=== PATIENT | male | born 1955 | race Caucasian/White ===

== ENCOUNTER 2018-05-20 09:02 | Outpatient (REF) | payer MEDICARE, SELFPAY ==
[2018-05-20 15:35] LABS: ALT 23 U/L (12-78); AST 17 U/L (15-37); Albumin 3.5 g/dL (3.4-5.0); Alkaline Phosphatase 112 U/L (46-116); Anion Gap 8.8 mmol/L (3-11); BUN 20 mg/dL (7-18); Bilirubin, Total 0.4 mg/dL (0.2-1.0); CO2 27.2 mmol/L (21.0-32.0); Calcium 8.2 mg/dL (8.5-10.1); Chloride 106 mmol/L (98-107); Glucose 187 mg/dL (70-100); Potassium 4.5 mmol/L (3.5-5.1); Sodium 142 mmol/L (136-145); Total Protein 6.6 g/dL (6.4-8.2); Vitamin B12 385 pg/mL (193-986)
== END 2018-05-20 09:22 ==
LOC: NCHCN 09:02
PROVIDERS: PCP Nurse Practitioner Family; Visit Provider Nurse Practitioner Family
DX: E10.9 Type 1 diabetes mellitus without complications (principal); I10 Essential (primary) hypertension; R78.5 Finding of other psychotropic drug in blood; E83.51 Hypocalcemia; Z89.511 Acquired absence of right leg below knee; K30 Functional dyspepsia; I82.90 Acute embolism and thrombosis of unspecified vein; E66.9 Obesity, unspecified
CPT/HCPCS: 80053; 82607; 83735

== ENCOUNTER 2018-08-19 14:04 | Outpatient (REF) | payer MEDICARE, SELFPAY ==
[2018-08-19 22:31] LABS: Calcium 8.7 mg/dL (8.5-10.1)
== END 2018-08-19 14:24 ==
LOC: NCHCN 14:04
PROVIDERS: PCP Nurse Practitioner Family; Visit Provider Nurse Practitioner Family
DX: K30 Functional dyspepsia (principal); E83.51 Hypocalcemia; E10.9 Type 1 diabetes mellitus without complications; I10 Essential (primary) hypertension; E78.5 Hyperlipidemia, unspecified; E66.9 Obesity, unspecified; I82.90 Acute embolism and thrombosis of unspecified vein; H35.9 Unspecified retinal disorder
CPT/HCPCS: 82310

== ENCOUNTER 2019-04-20 11:31 | Outpatient (REF) | payer MEDICARE, SELFPAY ==
[2019-04-20 22:28] LABS: ALT 31 U/L (16-63); AST 16 U/L (15-37); Albumin 3.5 g/dL (3.4-5.0); Alkaline Phosphatase 103 U/L (46-116); Anion Gap 9.1 mmol/L (3-11); BUN 16 mg/dL (7-18); Bilirubin, Total 0.5 mg/dL (0.2-1.0); CO2 27.9 mmol/L (21.0-32.0); CREATININE 0.99 mg/dL (0.70-1.30); Calcium 8.4 mg/dL (8.5-10.1); Chloride 103 mmol/L (98-107); Glucose 280 mg/dL (74-106); Magnesium 1.7 mg/dL (1.8-2.4); Potassium 4.8 mmol/L (3.5-5.1); Sodium 140 mmol/L (136-145); Total Protein 6.5 g/dL (6.4-8.2); Vitamin B12 352 pg/mL (193-986)
== END 2019-04-20 11:51 ==
LOC: NCHCN 11:31
PROVIDERS: PCP Nurse Practitioner Family; Visit Provider Nurse Practitioner Family
DX: K30 Functional dyspepsia (principal); E83.51 Hypocalcemia; E10.9 Type 1 diabetes mellitus without complications; I10 Essential (primary) hypertension; E78.5 Hyperlipidemia, unspecified; I73.9 Peripheral vascular disease, unspecified; E66.9 Obesity, unspecified; Z89.511 Acquired absence of right leg below knee
CPT/HCPCS: 80053; 82607; 83735

== ENCOUNTER 2019-12-28 16:44 | Outpatient (REF) | payer MEDICARE, SELFPAY | END 2019-12-28 17:04 | LOC: NCHCN 16:44 | PROVIDERS: PCP Nurse Practitioner Family; Visit Provider Nurse Practitioner Family | DX: E10.9 Type 1 diabetes mellitus without complications (principal) | CPT/HCPCS: 82306 ==

== ENCOUNTER 2020-04-14 18:18 | Outpatient (REF) | payer MEDICARE, SELFPAY ==
[2020-04-14 14:12] LABS: ALT 33 U/L (16-63); AST 19 U/L (15-37); Albumin 3.7 g/dL (3.4-5.0); Alkaline Phosphatase 97 U/L (46-116); Anion Gap 11.1 mmol/L (3-11); BUN 25 mg/dL (7-18); Bilirubin, Total 0.4 mg/dL (0.2-1.0); CO2 26.9 mmol/L (21.0-32.0); CREATININE 1.1 mg/dL (0.70-1.30); Calcium 8.5 mg/dL (8.5-10.1); Chloride 101 mmol/L (98-107); Glucose 209 mg/dL (74-106); Magnesium 2.1 mg/dL (1.8-2.4); Potassium 4.9 mmol/L (3.5-5.1); Sodium 139 mmol/L (136-145); TSH (W/Ref FT4) 2.78 uIU/mL (0.36-3.74); Total Protein 6.9 g/dL (6.4-8.2); Vitamin B12 435 pg/mL (193-986)
== END 2020-04-14 18:19 | disposition home or self-care (01) ==
LOC: NCHCN 18:18
PROVIDERS: PCP Nurse Practitioner Family; Visit Provider Nurse Practitioner Family
DX: E83.42 Hypomagnesemia (principal); E83.51 Hypocalcemia; E10.9 Type 1 diabetes mellitus without complications; I10 Essential (primary) hypertension; E78.5 Hyperlipidemia, unspecified; E66.9 Obesity, unspecified; K30 Functional dyspepsia
CPT/HCPCS: 80053; 82607; 83735; 84443

== ENCOUNTER 2020-07-19 01:37 | Outpatient (CLI) | payer MEDICARE, SELFPAY ==
--- NOTE | 2020-07-19 08:02 | DI.RAD_ITS ---
Exam(s) XR HIP LT COMPLETE AP PELVIS EXAM: XR HIP LT COMPLETE AP PELVIS CLINICAL HISTORY: LT HIP PAIN, M25.552 TECHNIQUE: COMPARISON: No exams were available for comparison FINDINGS: Three views were obtained. There is severe loss of cartilaginous joint space the left hip. There is marked subchondral sclerosis and cyst formation of the femoral head and acetabulum. Moderate margin al osteophytes are noted involving the femoral head and acetabulum. On the right, there are mild degenerative changes of the hip. IMPRESSION: Severe DJD left hip, mild DJD right hip. RADIATION DOSE DELIVERED: Total DLP
== END 2020-07-19 01:57 ==
PROVIDERS: PCP Nurse Practitioner Family; Visit Provider Internal Medicine
DX: M25.552 Pain in left hip (principal); M16.0 Bilateral primary osteoarthritis of hip
CPT/HCPCS: 73502

== ENCOUNTER → 2020-09-12 11:05 | Outpatient (BNVA) | payer MEDICARE, SELFPAY | PROVIDERS: PCP Nurse Practitioner Family; Referring Provider Nurse Practitioner Family; Visit Provider Student in an Organized Health Care Education/Training Program | DX: M16.12 Unilateral primary osteoarthritis, left hip (principal) | CPT/HCPCS: 99213 ==

== ENCOUNTER 2020-09-15 03:31 | Outpatient (CLI) | payer MEDICARE, SELFPAY ==
--- NOTE | 2020-09-15 09:00 | DI.RAD_ITS ---
Exam(s) RF JOINT INJECTION FLUORO GUID EXAM: RF JOINT INJECTION FLUORO GUID CLINICAL HISTORY: LEFT HIP INJ UNDER FLUORO,LT HIP PAIN, M25.552 TECHNIQUE: Fluoroscopy provided. Radiologist not present. CONTRAST MATERIAL: None COMPARISON: No exams were available for comparison FINDINGS: Fluoroscopy was provided for Dr. Huston during left hip therapeutic injection. Submitted image(s) reveal needle lateral approach with needle tip lateral aspect of the femoral head- neck junction ejection of radiopaque contrast Please refer to the procedure report for complete details. Cumulative Dose: dmitriy Shirley=9.54 mGy IMPRESSION: RADIATION DOSE DELIVERED:
[2020-09-15] MEDS: Bupivacaine 0.5% Pres-Free 10 ML VIAL IJ (15:31)
[2020-09-15] MEDS: methylPREDNISolone ACETATE 80 MG/ML VIAL IM (15:32)
[2020-09-15] MEDS: Omnipaque 300 MG/ML 10 ML BTL IJ (15:33)
--- NOTE | 2020-09-15 15:33 | OPPNE_ITS ---
Date of service: 09/15/20 Time of Service: 15:33 Procedure Note Date of procedure: 09/15/20 Procedure: Left Hip Injection with Fluoroscopic Guidance Surgeon/Proceduralist/Physician: Gatito Huston Procedure Diagnosis: Left Hip Osteoarthritis Procedure Indications: Chino has had persistent pain of the LEFT hip and groin. Noninvasive measures have been tried. To serve as both diagnostic and therapeutic, an injection under fluoroscopy was recommended. I had discussed the risks of the procedure and the patient elected to proceed. Procedure Description: Chino was greeted in the flouroscopy room. The correct side was identified and the consent was reviewed with the patient and signed. The patient was then placed in the supine position on the fluoroscopy table. The LEFT hip was then prepped with Chloraprep. The anterolateral injection starting point was identiifed by bony landmarks and fluoroscopy. The skin and soft tissue in the tract of the injection was anesthetized with 1% Lidocaine. A spinal needle was then inserted deep into the hip joint at the level of the lateral femoral neck under fluoroscopic guidance. Despite clinically and radiographically being in the desired location, injection of fluid was difficult. A small amount of Omnipaque solution was injected to confirm intraarticular placement. It seemed to gather in the lateral space but with repositioning of the needle showed intra-articular spread. Once confirmed, the hip was injected with 5cc of 0.5% Bupivicaine and 80mg of Depo-Medrol. A b andaid was placed on the injection site. The patient tolerated the procedure well.
== END 2020-09-15 03:51 ==
PROVIDERS: PCP Nurse Practitioner Family; Visit Provider Student in an Organized Health Care Education/Training Program
DX: M16.12 Unilateral primary osteoarthritis, left hip (principal); M25.552 Pain in left hip; R10.32 Left lower quadrant pain
CPT/HCPCS: 20610; 77002; J1040

== ENCOUNTER 2020-12-22 02:11 | Outpatient (CLI) | payer MEDICARE, SELFPAY ==
--- NOTE | 2020-12-22 08:45 | DI.RAD_ITS ---
Exam(s) RF JOINT INJECTION FLUORO GUID EXAM: RF JOINT INJECTION FLUORO GUID CLINICAL HISTORY: LEFT HIP PAIN,injection under fluoro, m16.12, OA TECHNIQUE: Fluoroscopy provided. Radiologist not present. CONTRAST MATERIAL: None COMPARISON: No exams were available for comparison FINDINGS: Fluoroscopy was provided for Dr. Huston during therapeutic hip injection. Submitted image(s) reveal placement of the needle at the junction of the lateral aspect of the femora l head and neck. Intra-articular contrast was injected Please refer to the procedure report for complete details. Cumulative Dose: dmitriy Shirley=3.45 mGy IMPRESSION: RADIATION DOSE DELIVERED:
[2020-12-22] MEDS: Bupivacaine 0.5% Pres-Free 10 ML VIAL IJ (14:42)
[2020-12-22] MEDS: Omnipaque 300 MG/ML 10 ML BTL IJ (14:42)
[2020-12-22] MEDS: methylPREDNISolone ACETATE 80 MG/ML VIAL IM (14:43)
--- NOTE | 2020-12-22 22:27 | W.PROCNOTE ---
Date of service: 12/22/20 Time of Service: 14:54 Procedure Note Procedure: Left Hip Injection with Fluoroscopic Guidance Surgeon/Proceduralist/Physician: Gatito Huston Procedure Diagnosis: Left Hip Osteoarthritis Procedure Indications: Chino has had persistent pain of the LEFT hip and groin. Noninvasive measures have been tried and he had good success with previous injection is in August. Therefore, an injection under fluoroscopy was recommended. I had discussed the risks of the procedure and the patient elected to proceed. Procedure Description: Chino was greeted in the flouroscopy room. The correct side was identified and the consent was reviewed with the patient and signed. The patient was then placed in the supine position on the fluoroscopy table. The LEFT hip was then prepped with Chloraprep. The anterolateral injection starting point was identiifed by bony landmarks and fluoroscopy. The skin and soft tissue in the tract of the injection was anesthetized with 1% Lidocaine. A spinal needle was then inserted deep into the hip joint at the level of the lateral femoral neck under fluoroscopic guidance. A small amount of Omnipaque solution was injected to confirm intraarticular placement. Once confirmed, the hip was injected with 6cc of 0.5% Bupivicaine and 80mg of Depo-Medrol. A bandaid was placed on the injection site. The patient tolerated the procedure well and noted improvement in pre-injection pain.
== END 2020-12-22 02:31 ==
PROVIDERS: PCP Nurse Practitioner Family; Visit Provider Student in an Organized Health Care Education/Training Program
DX: M16.12 Unilateral primary osteoarthritis, left hip (principal); M25.552 Pain in left hip; R10.32 Left lower quadrant pain
CPT/HCPCS: 20610; 77002; J1040

== ENCOUNTER 2020-12-23 09:42 | Emergency (ER) | payer MEDICARE, SELFPAY ==
[2020-12-23] VITALS (108 sets, daily range): BP systolic 118–167; BP diastolic 33–102; PULSE 68–109; RESP 10–32; TEMP 36.5; O2SAT 86–98
--- NOTE | 2020-12-23 09:30 | RT.EKG_ITS ---
APPROVED REPORT Exam: Resting ECG Reason for Exam: chest pain Patient Location: E HR:79 bpm ECG Measurements Heart Rate 79 AXIS MI 259 P 12 QRSd 83 QRS 54 QT 364 T [id number] QTc 418 Conclusion Sinus rhythm...normal P axis, V-rate 60- 99 Prolonged MI interval...MI >220, V-rate 50- 90 Nonspecific repol abnormality, diffuse leads...ST dep, T flat/neg, ant/lat/inf
--- OUTSIDE RECORDS SUMMARY | 2020-12-23 09:51 | XMS_ITS ---
:1955 Author Care Team Providers Name Role Phone DR. MARIA GUADALUPE HERRERA Primary Care Provider [phone] DR. MARIA GUADALUPE HERRERA Referring Provider [phone] Allergies Code Code System Name Reaction Severity Status Onset NKDA ? Medications Name Status Start Date Stop Date ? ? aspirin 325 mg tablet Active ? Not availa ble Take 1 tablet every day by oral route. atorvastatin 40 mg tablet Active ? Not av ailable Take 1 tablet every day by oral route at bedtime. BD Ultra-Fine Micro Pen Needle Active ? N ot available FreeStyle Test Strips in vitro test Active ? Not available test 4-6 times a day Lantus Solostar U-100 Insulin 100 unit/mL (3 mL) subcutaneous pe n Active ? Not available Inject 65 units every day by subcutaneous route. Nexium 40 mg capsule,delayed release Active ? Not available Take 1 capsule every day by oral route. Novolog Flexpen U-100 Insulin aspart 100 unit/mL (3 mL) subcutan eous Active ? Not available Inject by subcutaneous route. ramipril 10 mg capsule Active ? Not avail able Take 2 capsules twice a day by oral route. Problems Name Status Onset Date Source ? Type 1 Diabetes Mellitus Active 12/11/2016 ? Obesity Active 12/11/2016 ? Hypertensive Disorder Active 12/11/2016 ? Deep Venous Thrombosis Active 12/11/2016 ? Type 1 Diabetes Mellitus Uncontrolled Active 01/15/2017 ? 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 Mellitus Hypoglycemia Due to Type 1 Diabetes Mellitus Active ? Procedures None recorded. Results Lab Results Date Name Specimen Result Interpretation Description Value Range Status Address ? ? Glucose, Blood ? Blood 150 ? ? [facility] - Fingerstick, capillary Glucose: Specialty: Blood mg/dl [facility] Past Encounters None recorded. Social History Tobacco Smoking Status Never Smoker Vaccine List None recorded. Plan of Care Reminders Provider Appointments None ? ? recorded. Lab None ? ? recorded. Referral None ? ? recorded. Procedures None ? ? recorded. Surgeries None ? ? recorded. Imaging None ? ? recorded. Vitals Height Weight BMI Blood Pressure 172.72 cm 92.08 kg 30.9 kg/m2 120/66 mm[Hg]
[2020-12-23 10:09] LABS: Abs Immature Grans 0.08 10^3/uL (0.0-0.06); Absolute Basophil Count 0.04 10^3/uL (0.0-0.2); Absolute Lymphocyte Count 1.02 10^3/uL (1.2-3.4); Absolute Monocyte Count 0.76 10^3/uL (0.1-0.8); Absolute Neutrophil Count 18.16 10^3/uL (1.2-6.7); Basophils % 0.2; HCT 46.1 % (40.0-50.0); HGB 14.8 g/dL (13.5-17.5); Immature Grans % 0.4; Lymphocytes % 5.1; MCH 28.8 pg (27.0-33.0); MCHC 32.1 % (32.0-36.0); MCV 89.7 fL (80-95); MPV 10.5 fL (8.0-11.0); Monocytes % 3.8; Neutrophils % 90.5; Nucleated RBC 0 %; Platelet Count 318 10^3/uL (130-400); RBC 5.14 10^6/uL (4.36-5.78); RDW 12.7 % (11.8-14.1); RDW-SD 42.3 fL; WBC 20.07 10^3/uL (4.4-10.8)
--- NOTE | 2020-12-23 10:13 | ED.GENADUL_ITS ---
Discharge Plan Disposition Patient Disposition: [facility] Condition: Stable Discharge Details Clinical Impression: Chest pain, Non-ST elevation [place] (NSTEMI) Primary Care Provider: Paris Smith ED Provider: Trenton Loaiza Pitcher Meds and New Rx's Prescriptions: Continued ramipril 10 mg capsule 20 mg PO BID RF: 0 Lantus U-100 Insulin 100 UNIT/ML solution 54 units Sub-Q DAILY RF: 0 aspirin 325 MG tablet 325 mg PO DAILY RF: 0 simvastatin 10 MG tablet 10 mg PO DAILY RF: 0 Humalog U-100 Insulin 100 UNIT/ML cartridge 25 units PO PRN PRNRF: 0 esomeprazole magnesium [Nexium] 20 MG capsule,delayed release(DR/EC) 20 mg PO DAILY RF: 0 Medical Decision Making <Eyad Roberson MD - Last Filed: 12/23/20 14:29> 65 yo male with hx of gerd, dm, htn, hld, who comes in with chief complaint of 2 weeks of chest pain. He states today it has been more or less constant so came here. He denies any increased pain with exertion, no n/v, no diaphoresis and no dyspnea. He has no prior history of cardiac disease per patient. He is in no distress on exam, 96% during my exam on room air. He states that sometimes the pain radiates to the back. He has tenderness in the epigastric otherwise no abdominal tendernress. Normal vascular exam. no calf swelling or tenderness. He did just start moving firewood so could be chest wall pain but given the r adiation of pain will obtain cta to evaluate for dissection. No tachycardia or evidence of dvt so doubt PE. Will obtain ecg and troponin as well. limited exam but no obvious PE and no obvious infiltrates or dissection. He remains stable and only has pain in the left shoulder. labs show nonspecific leukocytosis otherwise benign labs, denies any infectious symptoms so could be reactive from his pain. Discussed results with pt and he was offered observation admission vs delta troponin and ecg and if unchanged likely d/c and he would prefer d/c which I feel is reasonable, will continue to monitor. patient pain free now and 2nd ekg reviewed by Dr. Neal and feels it is more likely mobitz 1 and does have some anterior st depressions. Troponin now over 2. Heparin and plavix ordered and already had aspirin. Called [facility] [place] and they cannot accept any transfers or place ay patients on a list for transfer. Called [facility] and awaiting call back spoke with Dr. Huston from cardiology at [facility] who accepts in transfer and they will likely be able to accept him today. Pt stable, will remain in the ED as likely will have bed at [facility] today. Differential Diagnosis Differential Diagnosis: chest wall pain, nstemi, dissection Medical Records Medical records reviewed: Yes I reviewed the patient's medical records. Imaging Data Radiologic Study: Attestation: I personally reviewed and interpreted this imaging study as follows: Imaging: CT Scan Radiologist's impression: IMPRESSION: Exam limited by respiratory motion. No evidence of pulmonary emboli. Infiltrates cannot be entirely excluded. No focal consolidation. Atherosclerotic changes greater in the abdomen and pelvis without evidence of focal occlusion or significant stenosis. No acute abnormality in involving the abdominal or pelvic organs. Lab Data Lab results reviewed: Yes I reviewed the patient's lab results. ECG Data Attestation: I personally reviewed and interpreted this ECG (s) as follows: Prior ECG tracings: not available for review Interpretation: sinus rhythm, rate of 80, no acute st t wave ischemic findings 2nd ekg shows likely mobitz type one (discussed with cardiology), rate of 80, mild st depressions in anterior leads. <Trenton Loaiza MD - Last Filed: 12/23/20 22:01> Patient signed out to me pending transfer to [facility]. Patient remained stable and pain free. Transferred out by [facility]. HPI <Eyad Roberson MD - Last Filed: 12/23/20 14:29> General Mode of arrival: ambulatory . Date/Time Provider Initiated Documentation: 12/23/20 09:43 . Limitations to Documentation: no limitations . Information obtained by: patient . History of Present Illness 65 year old M presents to the emergency department with the chief complaint of chest pain, described as moderate, Quality is described as aching, and is localized to the chest. Patient reports radiation to back and abdomen. Patient started experiencing this week(s) (2) and it has been constant. No relieving factors improve symptom(s), No exacerbating factors reported . Patient notes no other symptoms.. Patient did receive the following treatments prior to arrival, none Related Data Home Medications Medication Instructions Recorded Confirmed Humalog U-100 Insulin 25 units PO PRN PRN 08/15/13 12/23/20 Lantus U-100 Insulin 54 units SUB-Q DAILY 08/15/13 12/23/20 aspirin 325 mg PO DAILY 08/15/13 12/23/20 simvastatin 10 mg PO DAILY 08/15/13 12/23/20 esomeprazole magnesium [Nexium] 20 mg PO DAILY 02/04/17 12/23/20 ramipril 10 mg capsule 20 mg PO BID cap 09/12/20 12/23/20 Allergies Allergy/AdvReac Type Severity Reaction Status Date / Time No Known Allergies Allergy Verified 12/23/20 09:50 General Stated Complaint: Chest Pain LIVAN: 2 Review of Systems <Eyad Roberson MD - Last Filed: 12/23/20 14:29> All systems reviewed & are unremarkable except as noted in HPI and below Constitutional Constitutional: Denies chills, Denies fever(s) and Denies weakness Cardiovascular Cardiovascular: Denies dyspnea Respiratory Respiratory: Denies cough and Denies dyspnea Gastrointestinal Gastrointestinal: Denies nausea and Denies vomiting Musculoskeletal Musculoskeletal: Denies joint swelling Neurologic Neurologic: Denies weakness PFSH <Eyad Roberson MD - Last Filed: 12/23/20 14:29> Surgical History (Updated 09/12/20 @ 18:22 by LORA Carr) Hx of AKA (above knee amputation) RIGHT Social History Smoking/Tobacco Use Status: Never Smoking risk assessment performed?: Yes Alcohol Intake: current Alcohol Intake frequency: a few times a month Drug use: Never Substance use type: does not use Do you feel safe at home: Yes Do you feel safe in your relationship?: Yes Exam <Eyad Roberson MD - Last Filed: 12/23/20 14:29> Const General: no acute distress Orientation: alert [facility] Head: normal to inspection Ears: external ears normal General nose exam: external nose normal Mouth: moist mucous membranes Eyes General: appearance normal, both eyes and all related structures Neck Neck: normal visual inspection Chest Chest: normal inspection of the chest Resp Effort & Inspection: normal respiratory effort and able to speak in complete sentences Cardio Rate: regular rate GI Palpation: soft and tender Skin General skin exam: no rashes or lesions noted Neuro General: patient alert and patient oriented x3 Extrem General: normal to inspection Psych Mental Status: mental status grossly normal Course <Eyad Roberson MD - Last Filed: 12/23/20 14:29> Vital Signs Vital signs: Vital Signs Temperature 36.5 C 12/23/20 09:46 Pulse 96 H 12/23/20 09:46 Respiratory Rate 25 H 12/23/20 09:46 Pulse Oximetry 94 12/23/20 09:46 Temperature 36.5 C 12/23/20 09:46 Temperature Source Tympanic 12/23/20 09:46 Pulse 96 H 12/23/20 09:46 Respiratory Rate 24 12/23/20 09:51 Respiratory Effort Non-Labored 12/23/20 09:51 Respiratory Depth Normal 12/23/20 09:51 Respiratory Pattern Normal 12/23/20 09:51 Pulse Oximetry 93 12/23/20 10:04 Oxygen Delivery Method Nasal Cannula 12/23/20 10:04 Oxygen Flow Rate 2 12/23/20 10:04 Pain Level 7 12/23/20 09:51 Lab/Test Results Lab/Test Results: Laboratory Tests Range/Units 12/23/20 10:00 WBC (4.4-10.8) 10^3/uL 20.07 H RBC (4.36-5.78) 10^6/uL 5.14 Hgb (13.5-17.5) g/dL 14.8 Hct (40.0-50.0) % 46.1 MCV (80-95) fL 89.7 MCH (27.0-33.0) pg 28.8 MCHC (32.0-36.0) % 32.1 RDW (11.8-14.1) % 12.7 Plt Count (130-400) 10^3/uL 318 MPV (8.0-11.0) fL 10.5 Immature Gran % 0.4 Neutrophils % 90.5 Lymphocytes % 5.1 Monocytes % 3.8 Eosinophils % 0.0 Basophils % 0.2 Nucleated RBC % % 0 Absolute Neutrophils (1.2-6.7) 10^3/uL 18.16 H Absolute Lymphocytes (1.2-3.4) 10^3/uL 1.02 L Absolute Monocytes (0.1-0.8) 10^3/uL 0.76 Absolute Eosinophils (0.0-0.7) 10^3/uL 0.00 Absolute Basophils (0.0-0.2) 10^3/uL 0.04 Sign Out <Eyad Roberson MD - Last Filed: 12/23/20 14:29> Sign Out Data: Sign Out Comment: nstemi, pain free now, pending transfer to [facility] Last updated by Eyad Roberson MD at 12/23/20 17:44 PAWSS <Eyad Roberson MD - Last Filed: 12/23/20 14:29> Have you Been Recently Intoxicated or Drunk Within the Last 30 days?: No Have you Ever Experienced Previous Episodes of Alcohol Withdrawal?: No Have you ever Experienced Withdrawal Seizures?: No Have you ever Experienced Delirium Tremens(DT)s?: No Have you ever undergone Alcohol Rehabilitation Treatment (i.e, inpt ot outpatient treatment programs)?: No Have you ever Experienced Blackouts?: No Have you ever Combined Alcohol with other Downers within the last 90 days?: No Have you ever Combined Alcohol with any other Substance of Abuse during the last 90 days?: No Positive Blood Alcohol level on Presentation? [PCS.BAL]: No Evidence of Increased Autonomic Activity (i.e. HR>120, tremor, sweating, agitation, nausea)?: No Result: 0
[2020-12-23 10:26] LABS: ALT 23 U/L (16-63); AST 14 U/L (15-37); Albumin 3.6 g/dL (3.4-5.0); Alkaline Phosphatase 88 U/L (46-116); Anion Gap 9.4 mmol/L (3-11); BUN 19 mg/dL (7-18); Bilirubin, Total 0.6 mg/dL (0.2-1.0); CO2 26.6 mmol/L (21.0-32.0); CREATININE 1.2 mg/dL (0.70-1.30); Calcium 8.3 mg/dL (8.5-10.1); Chloride 105 mmol/L (98-107); Glucose 313 mg/dL (74-106); Magnesium 2.1 mg/dL (1.8-2.4); Potassium 5.1 mmol/L (3.5-5.1); Sodium 141 mmol/L (136-145); Total Protein 7.1 g/dL (6.4-8.2); Troponin I 0.05 ng/mL (<0.06)
[2020-12-23] MEDS: Aspirin 325 MG TAB PO (10:30)
[2020-12-23 10:49] LABS: Lipase 52 U/L (73-393)
[2020-12-23] MEDS: Omnipaque 350 MG/ML 100 ML BTL IJ (11:11)
[2020-12-23] MEDS: Omnipaque 350 MG/ML 50 ML BTL IJ (11:12)
[2020-12-23] MEDS: Normal Saline - Diluent 50 ML VIAL IV (11:12)
[2020-12-23] MEDS: Normal Saline Flush 10 ML SYR IVP (11:13)
--- NOTE | 2020-12-23 11:15 | DI.CT_ITS ---
Exam(s) CT THORAX ABD/PEL CTA EXAM: CT THORAX ABD/PEL CTA CLINICAL HISTORY: chest/back/abdomen pain. TECHNIQUE: Imaging Protocol: Axial CT angiography was performed with multi-slice acquisition and m ulti-planar and/or 3D reconstructions. CONTRAST MATERIAL: Intravenous: Omnipaque 350 Contrast volume:125 ml Oral: no COMPARISON: CR CHEST 2 VIEWS PA,LAT from 08/16/2013 CR CHEST 2 VIEWS PA,LAT from 08/16/2013 FINDINGS: CHEST: Exam limited by respiratory motion patient had difficulty breath-holding. Pulmonary Arteries: No evidence of filling defect to suggest pulmonary emboli. Tracheobronchial tree: Patent where visualized. Mediastinum and Cris: No dominant adenopathy or fluid collection. Pulmonary parenchyma: Significant respiratory motion. No focal consolidation. Pleura: No effusion or pneumothorax. Heart: The heart is not dilated. coronary artery calcifications are seen. Aorta: Thoracic aorta non-dilated. No dissection Bones: Chronic anterior wedging T4, T11 and T12. : ABDOMEN AND PELVIS: Abdomen: Celiac axis/mesenteric arteries: No evidence of occlusion or significant stenosis. Renal Arteries: No evidence of occlusion or significant stenosis. Aorta: No evidence of occlusion or significant stenosis. No aneurysm or dissection. Mild to modera te atherosclerotic changes. Pelvis: Iliac Arteries: No evidence of occlusion or significant stenosis. Common Femoral Arteries: Irregular atherosclerotic plaque. ABDOMEN: Liver: Normal density. No measurable mass. Portal, Superior Mesenteric, and Splenic Veins: Unremarkable. Gallbladder and Biliary Tract: No radiodense calculus or dilation. Pancreas: Somewhat atrophic. Normal density, no abnormal calcifications or inflammatory process. Spleen: Normal. Adrenals: No masses seen. Kidneys: Normal size, contour and axis. No radiodense stones or obstructive uropathy. No masses seen. Bowel: No obstruction or bowel wall thickening. Appendix is unremarkable. Peritoneal Cavity: No ascites, collection or mesenteric inflammatory response. Lymph Nodes: Within normal limits. Bones: Unremarkable. Soft Tissues: Calcifications and increased soft tissue density in the anterior abdominal wall 2nd sec ondary to injection sites. PELVIS: Bladder: Symmetric distention, no gross wall thickening. Reproductive Organs: Unremarkable as visualized. Lymph Nodes: Within normal limits. Bones: Bilateral L5 spondylolysis and mild L5-S1 spondylolisthesis. IMPRESSION: Exam limited by respiratory motion. No evidence of pulmonary emboli. Infiltrates cannot be entirely excluded. No focal consolidation. Atherosclerotic changes greater in the abdomen and pelvis without evidence of focal occlusion or sign ificant stenosis. No acute abnormality in involving the abdominal or pelvic organs. RADIATION DOSE DELIVERED: 1,409.07mGy.cm Total DLP DATA REPOSITORY: All CT scans at this facility are submitted to the National Radiology Data Registry (NRDR) Dose Index Registry (DIR) with the [employer] ([employer]). RADIATION OPTIMIZATION: All CT scans at this facility use at least one of these dose optimization te chniques: automated exposure control; mA and/or kV adjustment per patient size (includes targeted exa ms where dose is matched to clinical indication); or iterative reconstruction.
--- NOTE | 2020-12-23 12:30 | RT.EKG_ITS ---
APPROVED REPORT Exam: Resting ECG Reason for Exam: chest pain Patient Location: E HR:86 bpm ECG Measurements Heart Rate 86 AXIS OH 313 P 10 QRSd 78 QRS 57 QT 348 T 38 QTc 417 Conclusion Second degree AV block, Mobitz II...multiple P waves ST depr, consider ischemia, anterolateral lds...ST <-0.10mV, I aVL V2-V6 discussed with Dr. Neal, idalmis morris
[2020-12-23 13:11] LABS: Troponin I 2.58 ng/mL (<0.06)
[2020-12-23 13:46] LABS: Source Nasal/Nares
[2020-12-23 14:16] LABS: INR 1.1 (0.9-1.1); PTT Activated 23.9 sec (21.0-27.5); Prothrombin Time 10.7 sec (9.3-11.0)
[2020-12-23 19:38] LABS: Prothrombin Time 10.4 sec (9.3-11.0)
[2020-12-23 19:44] LABS: Troponin I 50.63 ng/mL (<0.06)
[2020-12-23 19:51] LABS: PTT Activated 39.4 sec (21.0-27.5)
[2020-12-23 20:16] LABS: COVID-19 PCR Negative (Negative)
== END 2020-12-23 21:12 ==
PROVIDERS: Emergency Medicine; Emergency Provider Emergency Medicine; PCP Nurse Practitioner Family
DX: I21.4 Non-ST elevation (NSTEMI) myocardial infarction (principal); R07.9 Chest pain, unspecified; R10.816 Epigastric abdominal tenderness; Z20.822 Contact with and (suspected) exposure to COVID-19
CPT/HCPCS: 36415; 36416; 71275; 74177; 80053; 82962; 83690; 87635; 93005; 96365; 96366; 96376; 99285; 83735; 84484; 85025; 85610; 85730; 93010; J3490; Q9967

== ENCOUNTER 2021-02-06 08:24 | Outpatient (CLI) | payer MEDICARE, SELFPAY ==
--- NOTE | 2021-02-06 08:15 | RT.EKG_ITS ---
APPROVED REPORT Exam: Resting ECG Reason for Exam: heart block Patient Location: O HR:72 bpm ECG Measurements Heart Rate 72 AXIS SD 282 P -67 QRSd 89 QRS 29 QT 356 T 10 QTc 390 Conclusion Sinus rhythm...P axis (-45,135) Prolonged SD interval...SD >220, V-rate 50- 90 Baseline wander in lead(s) V4
== END 2021-02-06 08:25 | disposition home or self-care (01) ==
LOC: DI.CARD 08:25
PROVIDERS: PCP Nurse Practitioner Family; Visit Provider Internal Medicine Cardiovascular Disease
DX: I45.9 Conduction disorder, unspecified (principal); I44.0 Atrioventricular block, first degree
CPT/HCPCS: 93010

== ENCOUNTER → 2021-02-06 13:44 | Outpatient (BNVA) | payer MEDICARE, SELFPAY | PROVIDERS: PCP Nurse Practitioner Family; Referring Provider Nurse Practitioner Family; Visit Provider Internal Medicine Cardiovascular Disease | DX: I25.10 Atherosclerotic heart disease of native coronary artery without angina pectoris (principal); I25.2 Old myocardial infarction; E10.9 Type 1 diabetes mellitus without complications; I73.9 Peripheral vascular disease, unspecified | CPT/HCPCS: 93005; 99203; 99214 ==

== ENCOUNTER 2021-02-09 08:51 | Outpatient (REF) | payer MEDICARE, SELFPAY ==
[2021-02-09 15:01] LABS: ALT 22 U/L (16-63); AST 14 U/L (15-37); Albumin 3.9 g/dL (3.4-5.0); Alkaline Phosphatase 85 U/L (46-116); Anion Gap 8.7 mmol/L (3-11); BUN 33 mg/dL (7-18); Bilirubin, Total 0.4 mg/dL (0.2-1.0); CO2 26.3 mmol/L (21.0-32.0); CREATININE 1.3 mg/dL (0.70-1.30); Calcium 8.8 mg/dL (8.5-10.1); Calculated LDL 37 mg/dL (<100); Chloride 104 mmol/L (98-107); Cholesterol 87 mg/dL (<200); Estimated GFR 55.23 (mL/min/1.73m2); Glucose 191 mg/dL (74-106); HDL Cholesterol 34 mg/dL (40-60); Sodium 139 mmol/L (136-145); Total Protein 6.9 g/dL (6.4-8.2); Triglyceride 84 mg/dL (<150)
== END 2021-02-09 08:52 | disposition home or self-care (01) ==
LOC: NCHCN 08:51
PROVIDERS: PCP Nurse Practitioner Family; Visit Provider Nurse Practitioner Family
DX: I10 Essential (primary) hypertension (principal); I73.9 Peripheral vascular disease, unspecified
CPT/HCPCS: 80053; 80061

== ENCOUNTER 2021-02-13 09:09 | Outpatient (REF) | payer MEDICARE, SELFPAY ==
[2021-02-13 15:31] LABS: ALT 19 U/L (16-63); AST 15 U/L (15-37); Albumin 3.7 g/dL (3.4-5.0); Alkaline Phosphatase 84 U/L (46-116); BUN 41 mg/dL (7-18); Bilirubin, Total 0.4 mg/dL (0.2-1.0); CREATININE 1.3 mg/dL (0.70-1.30); Calcium 8.7 mg/dL (8.5-10.1); Chloride 104 mmol/L (98-107); Creatine Kinase 79 U/L (39-308); Estimated GFR 55.23 (mL/min/1.73m2); Glucose 114 mg/dL (74-106); Potassium 5.5 mmol/L (3.5-5.1); Sodium 140 mmol/L (136-145)
== END 2021-02-13 09:10 | disposition home or self-care (01) ==
LOC: NCHCN 09:09
PROVIDERS: PCP Nurse Practitioner Family; Visit Provider Nurse Practitioner Family
DX: E87.5 Hyperkalemia (principal)
CPT/HCPCS: 80053; 82550

== ENCOUNTER 2021-02-20 17:06 | Outpatient (REF) | payer MEDICARE, SELFPAY ==
[2021-02-20 21:09] LABS: Anion Gap 8.9 mmol/L (3-11); BUN 21 mg/dL (7-18); CO2 29.1 mmol/L (21.0-32.0); CREATININE 1.1 mg/dL (0.70-1.30); Calcium 9.2 mg/dL (8.5-10.1); Chloride 105 mmol/L (98-107); Potassium 5.3 mmol/L (3.5-5.1); Sodium 143 mmol/L (136-145)
[2021-02-20 21:25] LABS: Glucose 46 mg/dL (74-106)
== END 2021-02-20 17:07 | disposition home or self-care (01) ==
LOC: NCHCN 17:06
PROVIDERS: PCP Nurse Practitioner Family; Visit Provider Nurse Practitioner Family
DX: E87.5 Hyperkalemia (principal)
CPT/HCPCS: 80048

== ENCOUNTER 2021-02-28 15:29 | Outpatient (REF) | payer MEDICARE, SELFPAY | END 2021-02-28 15:30 | disposition home or self-care (01) | LOC: NCHCN 15:29 | PROVIDERS: PCP Nurse Practitioner Family; Visit Provider Nurse Practitioner Family | DX: E87.5 Hyperkalemia (principal) | CPT/HCPCS: 84132 ==

== ENCOUNTER 2021-03-20 15:10 | Outpatient (RCR) | payer MEDICARE, SELFPAY ==
--- NOTE | 2021-03-10 14:45 | RT.EKG_ITS ---
APPROVED REPORT Exam: Resting ECG Reason for Exam: rhythm change Patient Location: O HR:64 bpm ECG Measurements Heart Rate 64 AXIS MT 333 P -26 QRSd 87 QRS 20 QT 394 T 8 QTc 407 Conclusion Sinus rhythm...normal P axis, V-rate 50- 99 Prolonged MT interval...MT >220, V-rate 50- 90 Probable left atrial enlargement...P >50mS, <-0.10mV V1
== END 2021-03-20 23:59 | disposition home or self-care (01) ==
LOC: CR 15:10
PROVIDERS: PCP Nurse Practitioner Family; Visit Provider Family Medicine
DX: Z51.89 Encounter for other specified aftercare (principal); I49.8 Other specified cardiac arrhythmias; I25.2 Old myocardial infarction
CPT/HCPCS: S9472

== ENCOUNTER 2021-03-23 01:56 | Outpatient (CLI) | payer MEDICARE, SELFPAY ==
--- NOTE | 2021-03-23 08:30 | DI.RAD_ITS ---
Exam(s) RF JOINT INJECTION FLUORO GUID EXAM: RF JOINT INJECTION FLUORO GUID CLINICAL HISTORY: PAIN,primary oa lt hip, m16.12, fluoro guided injection TECHNIQUE: 2D and realtime digital imaging was performed. COMPARISON: No exams were available for comparison FINDINGS: Fluoroscopy was utilized by Dr. Huston during left hip injection. Please see Dr. Huston procedur e note. IMPRESSION: RADIATION DOSE DELIVERED: Fernr=2.33 mGy Total DLP
--- NOTE | 2021-03-23 15:42 | W.PROCNOTE ---
Date of service: 03/23/21 Time of Service: 15:42 Procedure Note Date of procedure: 03/23/21 Procedure: Left Hip Injection with Fluoroscopic Guidance Surgeon/Proceduralist/Physician: Gatito Huston Procedure Diagnosis: Left Hip Osteoarthritis Procedure Indications: [place] has had persistent pain of the LEFT hip and groin. Noninvasive measures have been tried. He is not a surgical candidate and has had some marginal relief with previous injections, although much less with the last. Thus, I recommended an injection under fluoroscopy was recommended. I had discussed the risks of the procedure and the patient elected to proceed. Procedure Description: Chino was greeted in the flouroscopy room. The correct side was identified and the consent was reviewed with the patient and signed. The patient was then placed in the supine position on the fluoroscopy table. The LEFT hip was then prepped with Chloraprep. The anterolateral injection starting point was identiifed by bony landmarks and fluoroscopy. The skin and soft tissue in the tract of the injection was anesthetized with 1% Lidocaine. A spinal needle was then inserted deep into the hip joint at the level of the lateral femoral neck under fluoroscopic guidance. A small amount of Omnipaque solution was injected to confirm intraarticular placement. Once confirmed, the hip was injected with 6cc of 0.5% Bupivicaine and 80mg of Depo-Medrol. A bandaid was placed on the injection site. The patient tolerated the procedure well and noted improvement in pre-injection pain.
[2021-03-23] MEDS: Omnipaque 300 MG/ML 10 ML BTL IJ (15:45)
[2021-03-23] MEDS: Bupivacaine 0.5% Pres-Free 10 ML VIAL 5 ML IJ (15:46)
[2021-03-23] MEDS: methylPREDNISolone ACETATE 80 MG/ML VIAL IM (15:47)
== END 2021-03-23 02:16 ==
PROVIDERS: PCP Nurse Practitioner Family; Visit Provider Student in an Organized Health Care Education/Training Program
DX: M16.12 Unilateral primary osteoarthritis, left hip (principal)
CPT/HCPCS: 20610; 77002; J1040

== ENCOUNTER 2021-04-14 10:00 | Outpatient (RCR) | payer MEDICARE, SELFPAY | END 2021-04-17 23:59 | disposition home or self-care (01) | LOC: CR 10:00 | PROVIDERS: PCP Nurse Practitioner Family; Visit Provider Family Medicine | DX: Z51.89 Encounter for other specified aftercare (principal); I25.2 Old myocardial infarction | CPT/HCPCS: S9472 ==

== ENCOUNTER 2021-04-17 12:43 | Outpatient (REF) | payer MEDICARE, SELFPAY ==
[2021-04-17 21:39] LABS: ALT 28 U/L (16-63); AST 18 U/L (15-37); Albumin 3.8 g/dL (3.4-5.0); Alkaline Phosphatase 81 U/L (46-116); Anion Gap 6.7 mmol/L (3-11); BUN 18 mg/dL (7-18); Bilirubin, Total 0.5 mg/dL (0.2-1.0); CO2 29.3 mmol/L (21.0-32.0); Calcium 8.5 mg/dL (8.5-10.1); Calculated LDL 40 mg/dL (<100); Chloride 102 mmol/L (98-107); Cholesterol 95 mg/dL (<200); Glucose 144 mg/dL (74-106); HDL Cholesterol 44 mg/dL (40-60); Magnesium 2.4 mg/dL (1.8-2.4); Potassium 5.2 mmol/L (3.5-5.1); Sodium 138 mmol/L (136-145); TSH (W/Ref FT4) 1.48 uIU/mL (0.36-3.74); Total Protein 6.9 g/dL (6.4-8.2); Triglyceride 58 mg/dL (<150); Vitamin B12 418 pg/mL (193-986)
== END 2021-04-17 12:44 | disposition home or self-care (01) ==
LOC: NCHCN 12:43
PROVIDERS: PCP Nurse Practitioner Family; Visit Provider Nurse Practitioner Family
DX: E10.9 Type 1 diabetes mellitus without complications (principal); I25.2 Old myocardial infarction; E87.5 Hyperkalemia
CPT/HCPCS: 80053; 80061; 82607; 83735; 84443

== ENCOUNTER 2021-05-02 00:41 | Outpatient (CLI) | payer MEDICARE, SELFPAY ==
--- NOTE | 2021-05-02 07:15 | DI.US_ITS ---
APPROVED REPORT EXAM: Comprehensive 2D, Doppler, and color-flow Echocardiogram Patient Location: Out-Patient Airline Pilot/First Officer: Mojgan Silver RDCS (AE) Indications: Heart block, [place], NSTEMI Other Information Study Quality: Adequate Conclusion Normal left ventricular wall thickness and chamber size. Estimated ejection fraction is 55 to 60%. Wall motion is normal Normal right ventricular size and systolic function Both atria are normal in size Aortic valve is sclerotic and trileaflet without stenosis or regurgitation Mildly thickened mitral leaflets with mild regurgitation Normal tricuspid valve with mild regurgitation. Estimated right ventricular systolic pressure is 38 mmHg Mildly dilated ascending aorta measuring 3.85 cm Wall motion Left Ventricle The left ventricle is normal size. The left ventricular systolic function is normal. The left ventric ular ejection fraction is within the normal range. There is normal left ventricular wall thickness. T here is normal LV segmental wall motion. There is no ventricular septal defect visualized. LVEF is 57 %. Right Ventricle The right ventricle is normal size. The right ventricular systolic function is normal. The RVSP is 38 .4 mmHg. Atria The left atrium size is normal. The right atrium size is normal. The interatrial septum is intact wit h no evidence for an atrial septal defect. Aortic Valve Aortic valve is calcified. Aortic valve is trileaflet. No hemodynamically significant valvular aortic stenosis. No aortic regurgitation is present. Mitral Valve Mitral valve leaflets are mildly thickened. No evidence of mitral valve stenosis. Mild mitral regurgi tation. Tricuspid Valve The tricuspid valve is normal in structure. There is no tricuspid valve stenosis. Mild tricuspid regu rgitation. Pulmonic Valve The pulmonary valve is normal in structure. There is no pulmonic valvular stenosis. Trace pulmonic re gurgitation. Great Vessels The aortic root is normal in size. The ascending aorta is mildly dilated. IVC is normal in size and c ollapses >50% with inspiration. Pericardium There is no pericardial effusion. 2D Dimensions IVSD d PLAX 0.95 cm M: 0.6-1.2 LV Vol A2C d MOD 135.2 mL LVPW d PLAX 0.95 cm M: 0.6 - 1.2 LV Vol A4C d MOD 142.2 mL LVID d PLAX 4.57 cm M: 4.2 - 5.8 LA vol/ BSA A2C s A-L 35.9 mL/m2 LVDs 3.15 cm M: 2.5 - 4.0 LA vol/ BSA A4C s A-L 26.5 mL/m2 Ao Root d 2.87 cm M: 3.1 - 3.7 LA Vol/ BSA Biplane s A-L 32.1 mL/m2 RA Area A4C 14.24 cm2 LA Area A4C s MOD 17.43 cm2 RA Vol/ BSA A4C s A-L 17.9 mL/m2 LA Area A2C s MOD 21.15 cm2 Ao Asc Diam d 3.85 cm M: 2.6 - 3.4 LV EF A4C MOD 55.2 % LV EF Teichholz 57.5 % LV EF A2C MOD 58.1 % LVEF (Hendrix's) 57.41 % M: 52 - 72 LV EF Biplane MOD 57.4 % LV Volume 106.90 mL M: 62 - 150 SV 81.07 mL LV Volume Index 55.10 mL/m2 M: 34 - 74 SV Index 41.68 mL/m2 LV Vol Biplane MOD 141.2 mL FS 30.10 % M-Mode TAPSE 2.45 cm (M/F) >1.7 LV Diastology MV E' medial 0.083 (>0.07 m/s) E/A Ratio 0.8 LV E/e MED 15.35 (<14) MV E Vmax 1.28 (0.4-1.3 m/s) MV E' lateral 0.097 (>0.1 m/s) MV A Vmax 1.55 (0.4-1.3 m/s) LV E/e LAT 13.20 (<14) MV E/A Ratio 0.81 MV E/E' medial 15.37 MV E/E' lateral 13.23 Aortic Valve LVOT Area 2.99 cm2 AoV Area Vmax 1.68 cm2 LVOT Vmax 1.28 m/s AoV Area/ BSA (Vmax) 0.86 cm2/m2 LVOT Mean Evaristo. 0.89 m/s TYREE Mean Evaristo. 1.67 cm2 LVOT Peak Grad 6.6 mmHg TYREE Mean Evaristo. Index 0.86 cm2/m2 LVOT Mean Grad 3.6 mmHg LVOT VTI 0.295 m LVOT Diam s 1.90 cm AoV Vmax 2.28 m/s Velocity Ratio 0.56 AoV Mean Evaristo. 1.59 m/s AoV Peak Grad 20.7 mmHg LVOT SV 87.97 mL AoV Mean Grad 11.3 mmHg AoV VTI 0.511 m AoV Area VTI 1.72 cm2 AoV Area/ BSA (VTI) 0.89 cm/m2 Mitral Valve MV DT 245 (160-240 msec) MR Vmax 5.21 m/s MV PHT 71 msec MR VTI 1.627 m MV Area PHT 3.09 cm2 MR Peak Grad 108.4 mmHg MV VTI 0.462 m MR Mean Grad 87.4 mmHg MV Area VTI 1.91 (4.0-6.0 cm2) MR PISA Radius 0.46 cm MR EROA 0.09 cm2 MR Aliasing Velocity 0.35 m/s MR PISA 1.33 cm2 Pulmonary Valve PV Vmax 1.06 (0.5-1.5 m/s) RVOT Peak Gr. 2.90 mmHg PV Peak Grad 4.5 mmHg RVOT Mean Gr. 1.50 mmHg PV Mean Grad 2.3 mmHg RVOT VTI 0.192 m PV VTI 0.226 m RVOT Vmax 0.85 m/s Tricuspid Valve TR Peak Grad 35.3 mmHg TR Vmax 2.97 m/s RA Pressure 3.00 mmHg RVSP (TR) 38.4 mmHg
== END 2021-05-02 01:01 ==
PROVIDERS: PCP Nurse Practitioner Family; Visit Provider Internal Medicine Cardiovascular Disease
DX: I21.4 Non-ST elevation (NSTEMI) myocardial infarction (principal); I25.10 Atherosclerotic heart disease of native coronary artery without angina pectoris; I45.9 Conduction disorder, unspecified; I77.819 Aortic ectasia, unspecified site
CPT/HCPCS: 93306

== ENCOUNTER → 2021-05-08 14:11 | Outpatient (BNVA) | payer MEDICARE, SELFPAY | PROVIDERS: PCP Nurse Practitioner Family; Referring Provider Nurse Practitioner Family; Visit Provider Internal Medicine Cardiovascular Disease | DX: I25.10 Atherosclerotic heart disease of native coronary artery without angina pectoris (principal); I73.9 Peripheral vascular disease, unspecified | CPT/HCPCS: 99214; 99213 ==

== ENCOUNTER 2021-05-17 10:00 | Outpatient (RCR) | payer MEDICARE, SELFPAY | END 2021-05-18 23:59 | disposition home or self-care (01) | LOC: CR 10:00 | PROVIDERS: PCP Nurse Practitioner Family; Visit Provider Family Medicine | DX: Z51.89 Encounter for other specified aftercare (principal); I25.2 Old myocardial infarction | CPT/HCPCS: S9472 ==

== ENCOUNTER 2021-06-14 10:00 | Outpatient (RCR) | payer MEDICARE, SELFPAY | END 2021-06-17 23:59 | disposition home or self-care (01) | LOC: CR 10:00 | PROVIDERS: PCP Nurse Practitioner Family; Visit Provider Internal Medicine Cardiovascular Disease | DX: Z51.89 Encounter for other specified aftercare (principal); I25.2 Old myocardial infarction | CPT/HCPCS: S9472 ==

== ENCOUNTER 2021-06-22 03:00 | Outpatient (CLI) | payer MEDICARE, SELFPAY ==
--- NOTE | 2021-06-22 13:20 | DI.RAD_ITS ---
Exam(s) RF JOINT INJECTION FLUORO GUID EXAM: RF JOINT INJECTION FLUORO GUID CLINICAL HISTORY: fluoro guided injection, primary oa lt hip, m16.12 TECHNIQUE: 2D and realtime digital imaging was performed. COMPARISON: No exams were available for comparison FINDINGS: C-arm fluoroscopy was utilized by Dr. Huston during reported left hip injection. Please see Dr. Chuck salas procedure note. IMPRESSION: RADIATION DOSE DELIVERED: dmitriy Shirley= 0.6 mGy Total DLP
[2021-06-22] MEDS: Bupivacaine 0.5% Pres-Free 30 ML VIAL 5 ML IJ (13:48)
[2021-06-22] MEDS: methylPREDNISolone ACETATE 80 MG/ML VIAL IM (13:48)
[2021-06-22] MEDS: Omnipaque 300 MG/ML 10 ML BTL IJ (13:49)
--- NOTE | 2021-06-22 13:49 | W.PROCNOTE ---
Date of service: 06/22/21 Time of Service: 13:20 Procedure Note Date of procedure: 06/22/21 Procedure: Left Hip Injection with Fluoroscopic Guidance Surgeon/Proceduralist/Physician: Gatito Huston Procedure Diagnosis: Left Hip Osteoarthritis Procedure Indications: [place] has had persistent pain of the LEFT hip and groin. Noninvasive measures have been tried. To serve as both diagnostic and therapeutic, an injection under fluoroscopy was recommended. I had discussed the risks of the procedure and the patient elected to proceed. Procedure Description: [place] was greeted in the flouroscopy room. The correct side was identified and the consent was reviewed with the patient and signed. The patient was then placed in the supine position on the fluoroscopy table. The LEFT hip was then prepped with Chloraprep. The anterolateral injection starting point was identiifed by bony landmarks and fluoroscopy. The skin and soft tissue in the tract of the injection was anesthetized with 1% Lidocaine. A spinal needle was then inserted deep into the hip joint at the level of the lateral femoral neck under fluoroscopic guidance. A small amount of Omnipaque solution was injected to confirm intraarticular placement. Once confirmed, the hip was injected with 6cc of 0.5% Bupivicaine and 80mg of Depo-Medrol. A bandaid was placed on the injection site. The patient tolerated the procedure well and noted improvement in pre-injection pain.
== END 2021-06-22 03:20 ==
LOC: DI 03:01
PROVIDERS: PCP Nurse Practitioner Family; Visit Provider Student in an Organized Health Care Education/Training Program
DX: M25.552 Pain in left hip (principal); M16.12 Unilateral primary osteoarthritis, left hip
CPT/HCPCS: 20610; 77002; J1040

== ENCOUNTER 2021-07-11 08:00 | Outpatient (RCR) | payer SELFPAY ==
[2021-06-20 08:39] VITALS: BP 142/67; PULSE 60
[2021-06-22 08:08] VITALS: BP 154/70; PULSE 63
[2021-06-27 08:11] VITALS: BP 153/70; PULSE 58
[2021-06-29 08:00] VITALS: BP 156/74; PULSE 58
[2021-07-04 10:03] VITALS: BP 140/58; PULSE 59
[2021-07-11 08:13] VITALS: BP 157/68; PULSE 62
== END 2021-07-18 23:59 | disposition home or self-care (01) ==
LOC: CR 08:00
PROVIDERS: PCP Nurse Practitioner Family; Visit Provider Internal Medicine Cardiovascular Disease
DX: R69 Illness, unspecified (principal)

== ENCOUNTER 2021-07-14 19:01 | Outpatient (REF) | payer MEDICARE, SELFPAY ==
[2021-07-14 14:52] LABS: Anion Gap 6.4 mmol/L (3-11); BUN 14 mg/dL (7-18); CO2 30.6 mmol/L (21.0-32.0); CREATININE 0.9 mg/dL (0.70-1.30); Calcium 8.4 mg/dL (8.5-10.1); Chloride 106 mmol/L (98-107); Glucose 69 mg/dL (74-106); Potassium 4.6 mmol/L (3.5-5.1); Sodium 143 mmol/L (136-145)
== END 2021-07-14 19:02 | disposition home or self-care (01) ==
LOC: NCHCN 19:01
PROVIDERS: PCP Nurse Practitioner Family; Visit Provider Nurse Practitioner Family
DX: E87.5 Hyperkalemia (principal)
CPT/HCPCS: 80048

== ENCOUNTER → 2021-09-05 12:57 | Outpatient (BNVA) | payer MEDICARE, SELFPAY | PROVIDERS: PCP Nurse Practitioner Family; Referring Provider Nurse Practitioner Family; Visit Provider Internal Medicine Cardiovascular Disease | DX: M16.12 Unilateral primary osteoarthritis, left hip (principal); R60.0 Localized edema; Z89.511 Acquired absence of right leg below knee; I73.9 Peripheral vascular disease, unspecified; I25.10 Atherosclerotic heart disease of native coronary artery without angina pectoris | CPT/HCPCS: 99213 ==